=== PATIENT | female | born 1970 | race Caucasian/White ===

== ENCOUNTER 2018-10-17 17:02 | Emergency (ER) | payer OTHER, SELFPAY ==
[2018-10-17 17:05] VITALS: BP 158/81; PULSE 93; RESP 14; TEMP 36.5; O2SAT 98
--- NOTE | 2018-10-17 17:11 | W.ED.GENAD ---
Discharge Plan Disposition Patient Disposition: HOME Condition: Stable Discharge Details Chief Complaint: Vascular Clinical Impression: DVT (deep venous thrombosis) Primary Care Provider: Maya Mascorro ED Provider: Merlene Riggins Home Meds and New Rx's Prescriptions: Continued gabapentin 250 MG/5 ML solution 600 mg PO TID RF: 0 valacyclovir 500 MG tablet 500 mg PO DAILY Qty: 90 RF: 4 insulin glargine [Lantus Solostar U-100 Insulin] 100 UNIT/1 ML insulin pen Sub-Q DAILY RF: 0 ferrous sulfate, dried [iron] 159 MG tablet extended release 60 mg PO TID RF: 0 cyclobenzaprine 10 MG tablet 1 tab PO TID RF: 0 furosemide 40 MG tablet 1 tab PO PRN PRNRF: 0 clonazepam 1 MG tablet 1 tab PO TID RF: 0 hydrocodone-acetaminophen 1 EACH tablet 1 tab PO Q6H PRN PRNRF: 0 spironolactone 25 MG tablet 1 tab PO BID RF: 0 pantoprazole 40 MG tablet,delayed release (DR/EC) 1 tab PO DAILY RF: 0 roflumilast [Daliresp] 500 MCG tablet 1 tab PO DAILY RF: 0 albuterol sulfate 2.5 MG/3 ML solution for nebulization 1 inh Inhalation Q4H PRN PRNRF: 0 calcium carbonate-vitamin D3 1 EACH tablet 1 tab PO DAILY RF: 0 triamcinolone acetonide 15 GM cream 1 ea Topical BID PRN PRNRF: 0 mometasone [Nasonex] 17 GM spray,non-aerosol 1 spray Intranasal DAILY RF: 0 albuterol sulfate [ProAir HFA] 8.5 GM HFA aerosol inhaler 1 inh Inhalation Q4H PRN PRNRF: 0 multivitamin 1 EACH capsule 1 ea PO DAILY RF: 0 omega-3 fatty acids-fish oil [One-Per-Day [place]-3] 1 EACH capsule,delayed release(DR/EC) 1 cap PO DAILY RF: 0 cetirizine [Zyrtec] 10 MG capsule 10 mg PO DAILY RF: 0 Discharge Instructions Instructions: Deep Venous Thrombosis (ED) Additional Instructions: encourage elevation of your left leg. Tylenol as needed for discomfort. You may continue with other pain medications as previously prescribed. Continue with anticoagulation. Please call [facility] vascular service on Friday to see if appointment may be moved up or get on a wait list. If you develop shortness of breath, chest pain, difficulty breathing, increased pain or other new/worsening symptoms please seek care urgently once again. Referrals: Maya Mascorro [Primary Care Provider] - Medical Decision Making Patient is a 47 year old female, accompanied by daughter, with c/c of LLE DVT with associated pain. States she was diagnosed with a DVT in July and is currently anticoagulated on Eliquiis. Has been taking medication as prescribed. Reports since the diagnosis of her symptoms, she has been having occasional pain that radiates up into the posterior thigh as well as discoloration in the toes of the left foot. Reports that she had claudication-like symptoms since the diagnosis in July. She reports she notices her toes turned black because of the long time sitting. States is primarily the lateral 3 toes towards the base of the great toe. Reports that she has chronic neuropathy. Is concerned that she may have recurrence of cellulitis that has been present on the left lower extremity historically. Patient has history of anxiety, depression, diabetes, GERD, neuropathy, edema, pneumonia. Reports history of COPD and states that this often causes shortness of breath but she has not noted any change in this associated with her current DVT. Denies any chest pain. Patient is concerned that her symptoms have not been addressed in a quicker manner. On exam, patient's left foot is pink and warm with good capillary refill. Her pedal pulse is present but weaker than that on the contralateral side. She does have pain with palpation the calf no palpable cord is noted. No pain elicited with palpation of the thigh. She has no discoloration, erythema or warmth to indicate cellulitis. She is good range of motion lower extremity. I was able to obtain her old records are from [facility]. I did question the patient which contributes again this is typically where she receives care and she felt that we may have further resources to we will to help her acutely. Patient does have upcoming appointment with vascular surgery at [facility] in 2 weeks. At this time, I do not see any emergent issue needed intervention. Advised elevation and continuing with her anticoagulant. We discussed new/worsening symptoms and when to seek care urgently once again. Advised she call vascular on Friday to see if upcoming appointment could be expidited. All of her questions and concerns were addressed, she isin agreement with this plan. HPI General Mode of arrival: ambulatory. Date/Time Provider Initiated Documentation: 10/17/18 17:08. Limitations to Documentation: no limitations. Information obtained by: patient, family and RN notes reviewed. History of Present Illness 47 year old F presents to the emergency department with the chief complaint of LLE pain, described as moderate, with intensity rated at 8. Quality is described as aching, and is localized to the left and lower extremity. Patient proximal. Patient started experiencing this month(s) and it has been constant. No relieving factors improve symptom(s), Immoblization worsens symptoms (prolonged sitting) . Patient notes denies chest pain, cough, diaphoresis, fever/chills, nausea/vomiting, rash and weakness. Patient did receive the following treatments prior to arrival, other (anticoagulated for known clot) Related Data Home Medications Medication Instructions Recorded Confirmed clonazepam 1 tab PO TID 05/11/14 11/21/14 cyclobenzaprine 1 tab PO TID 05/11/14 11/21/14 furosemide 1 tab PO PRN PRN 05/11/14 11/21/14 hydrocodone-acetaminophen 1 tab PO Q6H PRN PRN 05/11/14 11/21/14 pantoprazole 1 tab PO DAILY 05/11/14 11/21/14 roflumilast [Daliresp] 1 tab PO DAILY 05/11/14 11/21/14 spironolactone 1 tab PO BID 05/11/14 11/21/14 albuterol sulfate 1 inh INHALATION Q4H PRN PRN 11/21/14 11/21/14 albuterol sulfate [ProAir HFA] 1 inh INHALATION Q4H PRN PRN 11/21/14 11/21/14 calcium carbonate-vitamin D3 1 tab PO DAILY 11/21/14 11/21/14 cetirizine [Zyrtec] 10 mg PO DAILY 11/21/14 11/21/14 mometasone [Nasonex] 1 spray INTRANASAL DAILY 11/21/14 11/21/14 multivitamin 1 ea PO DAILY 11/21/14 11/21/14 omega-3 fatty acids-fish oil 1 cap PO DAILY 11/21/14 11/21/14 [One-Per-Day [place]-3] triamcinolone acetonide 1 ea TOPICAL BID PRN PRN 11/21/14 11/21/14 gabapentin 600 mg PO TID ml 12/12/16 valacyclovir 500 mg PO DAILY #90 tab-cap 12/18/16 ferrous sulfate, dried [iron] 60 mg PO TID 12/19/16 insulin glargine [Lantus Solostar u SUB-Q DAILY 12/19/16 U-100 Insulin] Allergies Allergy/AdvReac Type Severity Reaction Status Date / Time Penicillins Allergy Intermediate Hives Unverified 10/17/18 17:10 paroxetine HCl [From Paxil] AdvReac Unverified 10/17/18 17:10 sertraline HCl [From Zoloft] AdvReac Unverified 10/17/18 17:10 varenicline tartrate AdvReac Unverified 10/17/18 17:10 [From Chantix] General Stated Complaint: Vascular ROMA: 3 Review of Systems Constitutional Reports as per HPI, Denies chills, Denies fever(s), Denies headache(s), Denies lethargy and Denies poor appetite Eyes Denies change in vision ENT Denies dizziness and Denies headache(s) Cardiovascular Reports as per HPI, Denies chest pain, Denies chest pain with activity, Denies radiating jaw, neck or arm pain, Denies dyspnea and Denies dyspnea on exertion Respiratory Reports as per HPI, Denies chest congestion, Denies cough, Denies pain on inspiration, Denies pain with cough, Denies dyspnea, Denies dyspnea on exertion and Denies wheezing Gastrointestinal Reports as per HPI, Denies abdominal pain, Denies diarrhea, Denies nausea and Denies vomiting Musculoskeletal Reports as per HPI, Denies back pain, Reports numbness, Reports radiating pain into limb and Reports tingling Integumentary/Breasts Reports as per HPI and Denies rash Neurologic Reports as per HPI, Denies dizziness, Denies headache(s), Reports numbness and Reports tingling Allergic/Immunologic Denies wheezing [facility] Social History Smoking/Tobacco Use Status: Former Tobacco Use Drug use: Never Do you feel safe at home: Yes Do you feel safe in your relationship?: Yes Exam Const General: cooperative, healthy appearing, comfortable, no acute distress and well developed Nutritional Appearance: average body habitus and well nourished Orientation: alert, awake and oriented x3 HENNV Head: normal to inspection Ears: hearing grossly normal bilaterally Mouth: moist mucous membranes Chest Chest: normal inspection of the chest, normal palpation of entire chest wall and no crepitus Resp Effort & Inspection: normal respiratory effort, able to speak in complete sentences and no respiratory distress Auscultation: clear to auscultation bilaterally, no rales, no rhonchi and no wheezes Cardio Rate: regular rate Rhythm: regular rhythm Heart Sounds: S1 normal and S2 normal GI Inspection: normal to inspection, no edema and non-distended Palpation: soft, no hepatosplenomegaly, not firm, no guarding, not rigid and nontender Auscultation: normal bowel sounds Back/Spine/Pelvis Back: no CVA tenderness Thoracic/Lumbar Spine: thoracic and lumbar spine normal to inspection Skin General skin exam: no rashes or lesions noted Trauma: no lacerations or abrasions Neuro General: alert, awake and oriented x3 Cognition: normal cognition Speech: speech normal Gait: normal gait Extrem General: normal to inspection, normal capillary refill, no joint enlargement, normal gait (walks with cane), calf tenderness on the left and pedal edema on the left Psych Appearance: grossly normal and well kempt Mental Status: mental status grossly normal Speech and Movement: speech and movement normal Course Vital Signs Temperature 36.5 C 10/17/18 17:05 Pulse 93 H 10/17/18 17:05 Respiratory Rate 14 10/17/18 17:05 Blood Pressure 158/81 H 10/17/18 17:05 Pulse Oximetry 98 10/17/18 17:05 Temperature 36.5 C 10/17/18 17:05 Temperature Source Temporal Artery Scan 10/17/18 17:05 Pulse 93 H 10/17/18 17:05 Respiratory Rate 14 10/17/18 17:05 Respiratory Effort Non-Labored 10/17/18 17:08 Blood Pressure 158/81 H 10/17/18 17:05 Pulse Oximetry 98 10/17/18 17:05 Oxygen Delivery Method Room Air 10/17/18 17:05 Oxygen Flow Rate 0 10/17/18 17:05 Pain Level 8 10/17/18 17:05
--- NOTE | 2018-10-17 18:01 | ED.GENADUL_ITS ---
Discharge Plan Disposition Patient Disposition: HOME Condition: Stable Discharge Details Chief Complaint: Vascular Clinical Impression: DVT (deep venous thrombosis) Primary Care Provider: Maya Mascorro ED Provider: Merlene Riggins Home Meds and New Rx's Prescriptions: Continued gabapentin 250 MG/5 ML solution 600 mg PO TID RF: 0 valacyclovir 500 MG tablet 500 mg PO DAILY Qty: 90 RF: 4 insulin glargine [Lantus Solostar U-100 Insulin] 100 UNIT/1 ML insulin pen Sub-Q DAILY RF: 0 ferrous sulfate, dried [iron] 159 MG tablet extended release 60 mg PO TID RF: 0 cyclobenzaprine 10 MG tablet 1 tab PO TID RF: 0 furosemide 40 MG tablet 1 tab PO PRN PRNRF: 0 clonazepam 1 MG tablet 1 tab PO TID RF: 0 hydrocodone-acetaminophen 1 EACH tablet 1 tab PO Q6H PRN PRNRF: 0 spironolactone 25 MG tablet 1 tab PO BID RF: 0 pantoprazole 40 MG tablet,delayed release (DR/EC) 1 tab PO DAILY RF: 0 roflumilast [Daliresp] 500 MCG tablet 1 tab PO DAILY RF: 0 albuterol sulfate 2.5 MG/3 ML solution for nebulization 1 inh Inhalation Q4H PRN PRNRF: 0 calcium carbonate-vitamin D3 1 EACH tablet 1 tab PO DAILY RF: 0 triamcinolone acetonide 15 GM cream 1 ea Topical BID PRN PRNRF: 0 mometasone [Nasonex] 17 GM spray,non-aerosol 1 spray Intranasal DAILY RF: 0 albuterol sulfate [ProAir HFA] 8.5 GM HFA aerosol inhaler 1 inh Inhalation Q4H PRN PRNRF: 0 multivitamin 1 EACH capsule 1 ea PO DAILY RF: 0 omega-3 fatty acids-fish oil [One-Per-Day [place]-3] 1 EACH capsule,delayed release(DR/EC) 1 cap PO DAILY RF: 0 cetirizine [Zyrtec] 10 MG capsule 10 mg PO DAILY RF: 0 Discharge Instructions Instructions: Deep Venous Thrombosis (ED) Additional Instructions: encourage elevation of your left leg. Tylenol as needed for discomfort. You may continue with other pain medications as previously prescribed. Continue with anticoagulation. Please call [facility] vascular service on Friday to see if appointment may be moved up or get on a wait list. If you develop shortness of breath, chest pain, difficulty breathing, increased pain or other new/worsening symptoms please seek care urgently once again. Referrals: Maya Mascorro [Primary Care Provider] - Medical Decision Making Patient is a 47 year old female, accompanied by daughter, with c/c of LLE DVT with associated pain. States she was diagnosed with a DVT in July and is currently anticoagulated on Eliquiis. Has been taking medication as prescribed. Reports since the diagnosis of her symptoms, she has been having occasional pain that radiates up into the posterior thigh as well as discoloration in the toes of the left foot. Reports that she had claudication-like symptoms since the diagnosis in July. She reports she notices her toes turned black because of the long time sitting. States is primarily the lateral 3 toes towards the base of the great toe. Reports that she has chronic neuropathy. Is concerned that she may have recurrence of cellulitis that has been present on the left lower extremity historically. Patient has history of anxiety, depression, diabetes, GERD, neuropathy, edema, pneumonia. Reports history of COPD and states that this often causes shortness of breath but she has not noted any change in this associated with her current DVT. Denies any chest pain. Patient is concerned that her symptoms have not been addressed in a quicker manner. On exam, patient's left foot is pink and warm with good capillary refill. Her pedal pulse is present but weaker than that on the contralateral side. She does have pain with palpation the calf no palpable cord is noted. No pain elicited with palpation of the thigh. She has no discoloration, erythema or warmth to indicate cellulitis. She is good range of motion lower extremity. I was able to obtain her old records are from [facility]. I did question the patient which contributes again this is typically where she receives care and she felt that we may have further resources to we will to help her acutely. Patient does have upcoming appointment with vascular surgery at [facility] in 2 weeks. At this time, I do not see any emergent issue needed intervention. Advised elevation and continuing with her anticoagulant. We discussed new/worsening symptoms and when to seek care urgently once again. Advised she call vascular on Friday to see if upcoming appointment could be expidited. All of her questions and concerns were addressed, she isin agreement with this plan. HPI General Mode of arrival: ambulatory . Date/Time Provider Initiated Documentation: 10/17/18 17:08 . Limitations to Documentation: no limitations . Information obtained by: patient, family and RN notes reviewed . History of Present Illness 47 year old F presents to the emergency department with the chief complaint of LLE pain, described as moderate, with intensity rated at 8. Quality is described as aching, and is localized to the left and lower extremity. Patient proximal. Patient started experiencing this month(s) and it has been constant. No relieving factors improve symptom(s), Immoblization worsens symptoms (prolonged sitting) . Patient notes denies chest pain, cough, diaphoresis, fever/chills, nausea/vomiting, rash and weakness. Patient did receive the following treatments prior to arrival, other (anticoagulated for known clot) Related Data Home Medications Medication Instructions Recorded Confirmed clonazepam 1 tab PO TID 05/11/14 11/21/14 cyclobenzaprine 1 tab PO TID 05/11/14 11/21/14 furosemide 1 tab PO PRN PRN 05/11/14 11/21/14 hydrocodone-acetaminophen 1 tab PO Q6H PRN PRN 05/11/14 11/21/14 pantoprazole 1 tab PO DAILY 05/11/14 11/21/14 roflumilast [Daliresp] 1 tab PO DAILY 05/11/14 11/21/14 spironolactone 1 tab PO BID 05/11/14 11/21/14 albuterol sulfate 1 inh INHALATION Q4H PRN PRN 11/21/14 11/21/14 albuterol sulfate [ProAir HFA] 1 inh INHALATION Q4H PRN PRN 11/21/14 11/21/14 calcium carbonate-vitamin D3 1 tab PO DAILY 11/21/14 11/21/14 cetirizine [Zyrtec] 10 mg PO DAILY 11/21/14 11/21/14 mometasone [Nasonex] 1 spray INTRANASAL DAILY 11/21/14 11/21/14 multivitamin 1 ea PO DAILY 11/21/14 11/21/14 omega-3 fatty acids-fish oil 1 cap PO DAILY 11/21/14 11/21/14 [One-Per-Day [place]-3] triamcinolone acetonide 1 ea TOPICAL BID PRN PRN 11/21/14 11/21/14 gabapentin 600 mg PO TID ml 12/12/16 valacyclovir 500 mg PO DAILY #90 tab-cap 12/18/16 ferrous sulfate, dried [iron] 60 mg PO TID 12/19/16 insulin glargine [Lantus Solostar u SUB-Q DAILY 12/19/16 U-100 Insulin] Allergies Allergy/AdvReac Type Severity Reaction Status Date / Time Penicillins Allergy Intermediate Hives Unverified 10/17/18 17:10 paroxetine HCl [From Paxil] AdvReac Unverified 10/17/18 17:10 sertraline HCl [From Zoloft] AdvReac Unverified 10/17/18 17:10 varenicline tartrate AdvReac Unverified 10/17/18 17:10 [From Chantix] General Stated Complaint: Vascular ROMA: 3 Review of Systems Constitutional Reports as per HPI, Denies chills, Denies fever(s), Denies headache(s), Denies lethargy and Denies poor appetite Eyes Denies change in vision ENT Denies dizziness and Denies headache(s) Cardiovascular Reports as per HPI, Denies chest pain, Denies chest pain with activity, Denies radiating jaw, neck or arm pain, Denies dyspnea and Denies dyspnea on exertion Respiratory Reports as per HPI, Denies chest congestion, Denies cough, Denies pain on inspiration, Denies pain with cough, Denies dyspnea, Denies dyspnea on exertion and Denies wheezing Gastrointestinal Reports as per HPI, Denies abdominal pain, Denies diarrhea, Denies nausea and Denies vomiting Musculoskeletal Reports as per HPI, Denies back pain, Reports numbness, Reports radiating pain into limb and Reports tingling Integumentary/Breasts Reports as per HPI and Denies rash Neurologic Reports as per HPI, Denies dizziness, Denies headache(s), Reports numbness and Reports tingling Allergic/Immunologic Denies wheezing [facility] Social History Smoking/Tobacco Use Status: Former Tobacco Use Drug use: Never Do you feel safe at home: Yes Do you feel safe in your relationship?: Yes Exam Const General: cooperative, healthy appearing, comfortable, no acute distress and well developed Nutritional Appearance: average body habitus and well nourished Orientation: alert, awake and oriented x3 HENMA Head: normal to inspection Ears: hearing grossly normal bilaterally Mouth: moist mucous membranes Chest Chest: normal inspection of the chest, normal palpation of entire chest wall and no crepitus Resp Effort & Inspection: normal respiratory effort, able to speak in complete sentences and no respiratory distress Auscultation: clear to auscultation bilaterally, no rales, no rhonchi and no wheezes Cardio Rate: regular rate Rhythm: regular rhythm Heart Sounds: S1 normal and S2 normal GI Inspection: normal to inspection, no edema and non-distended Palpation: soft, no hepatosplenomegaly, not firm, no guarding, not rigid and nontender Auscultation: normal bowel sounds Back/Spine/Pelvis Back: no CVA tenderness Thoracic/Lumbar Spine: thoracic and lumbar spine normal to inspection Skin General skin exam: no rashes or lesions noted Trauma: no lacerations or abrasions Neuro General: alert, awake and oriented x3 Cognition: normal cognition Speech: speech normal Gait: normal gait Extrem General: normal to inspection, normal capillary refill, no joint enlargement, normal gait (walks with cane), calf tenderness on the left and pedal edema on the left Psych Appearance: grossly normal and well kempt Mental Status: mental status grossly normal Speech and Movement: speech and movement normal Course Vital Signs Temperature 36.5 C 10/17/18 17:05 Pulse 93 H 10/17/18 17:05 Respiratory Rate 14 10/17/18 17:05 Blood Pressure 158/81 H 10/17/18 17:05 Pulse Oximetry 98 10/17/18 17:05 Temperature 36.5 C 10/17/18 17:05 Temperature Source Temporal Artery Scan 10/17/18 17:05 Pulse 93 H 10/17/18 17:05 Respiratory Rate 14 10/17/18 17:05 Respiratory Effort Non-Labored 10/17/18 17:08 Blood Pressure 158/81 H 10/17/18 17:05 Pulse Oximetry 98 10/17/18 17:05 Oxygen Delivery Method Room Air 10/17/18 17:05 Oxygen Flow Rate 0 10/17/18 17:05 Pain Level 8 10/17/18 17:05
[2018-10-17 18:08] VITALS: RESP 16
== END 2018-10-17 18:17 | disposition home or self-care (01) ==
PROVIDERS: Emergency Provider Physician Assistant; PCP Nurse Practitioner Family
DX: I82.401 Acute embolism and thrombosis of unspecified deep veins of right lower extremity (principal); M79.605 Pain in left leg; G62.9 Polyneuropathy, unspecified; R20.2 Paresthesia of skin; E11.9 Type 2 diabetes mellitus without complications; Z79.4 Long term (current) use of insulin; Z79.01 Long term (current) use of anticoagulants; J44.9 Chronic obstructive pulmonary disease, unspecified; Z87.891 Personal history of nicotine dependence
CPT/HCPCS: 99282

== ENCOUNTER 2020-09-20 12:24 | Outpatient (REF) | payer OTHER, SELFPAY ==
--- NOTE | 2020-09-20 10:30 | PAPFT_PTH ---
PATIENT: Raven Pickett LOC: [facility] U#:[id number] AGE/SX: 49/F ROOM: RE09/20/[address]: Samara Rogers NP : 1970 BED: DIS: 09/20/2020 SPEC #: [id number] RECD: 09/20/20 13:05 STATUS: JAN REChanelle #: [id number] SEUN: 09/20/20 10:[address]: Samara Rogers NP DEPT: [facility] Cytology RECD BY: Hattie Agosto ENTERED: 09/20/20 13:06 SP TYPE: PAPFT OTHR DR: Maya Mascorro Tissues: 1 - CX/ENDOCX FOR PAP SMEARS Procedures: PAP THIN PREP/[facility] Screening HPV DNA PROBE Comments: [id number] (CHLAMYDIA/GC)
[2020-09-21 14:49] LABS: Chlamydia Result Negative (Negative); GC Result Negative (Negative)
== END 2020-09-20 12:25 | disposition home or self-care (01) ==
LOC: LBN 12:24
PROVIDERS: PCP Nurse Practitioner Family; Visit Provider Nurse Practitioner Women's Health
DX: Z11.3 Encounter for screening for infections with a predominantly sexual mode of transmission (principal); Z12.4 Encounter for screening for malignant neoplasm of cervix; Z11.51 Encounter for screening for human papillomavirus (HPV)
CPT/HCPCS: 87491; 87591; 88142; 87624

== ENCOUNTER 2024-04-06 16:00 | Outpatient (CLI) | payer OTHER, SELFPAY ==
--- NOTE | 2024-04-06 | DI.RAD_ITS ---
Exam(s) XR CHEST 2V PA LATERAL EXAM: XR CHEST 2V PA LATERAL CLINICAL HISTORY: COPD. TECHNIQUE: 2D digital imaging was performed. COMPARISON: CR CHEST 2 VIEWS PA,LAT from 11/21/2014 FINDINGS: 2 views: Heart size is normal. The mediastinum is not widened. There is a suture line in the lateral right lung now evident. There are no infiltrates nor pleural e ffusions. No obvious masses. IMPRESSION: No acute pulmonary findings.There is a suture line in the lateral aspect of the left lung evident whi ch was not present in 2014. There is no mass nor infiltrate evident at this level. DATA REPOSITORY: RADIATION DOSE DELIVERED:
== END 2024-04-06 16:20 ==
PROVIDERS: Visit Provider Nurse Practitioner Family
DX: J44.9 Chronic obstructive pulmonary disease, unspecified (principal)
CPT/HCPCS: 71046